=== PATIENT | male | born 1930 | race Caucasian/White ===

== ENCOUNTER 2016-11-26 10:53 | Observation (INO) | payer MEDICARE ==
[2016-11-26] VITALS (8 sets, daily range): BP systolic 121–175; BP diastolic 58–81; PULSE 62–85; RESP 14–18; TEMP 97.6–98.7; O2SAT 96–100
[~2016-11-26] VITALS: Ht 170.2 cm; Wt 60.0 kg
[~2016-11-26 10:53] MED LIST: ASPI81TA82 PO; ATOR20TA PO; ATRO0.05 LEFT EYE; CENTTAB9 PO; KETO1SOL3 LEFT EYE; KRIL300C PO; METO50TA PO; MISC1CAP7; OCUF0.3D LEFT EYE; OCUVCAP2; PRED1%O LEFT EYE
--- NOTE | 2016-11-26 12:49 | PD ---
HPI Chief Complaint: Abdominal Pain Time Seen by Provider: 12:49 Travel History International Travel<30 days: No Contact w/Intl Traveler<30days: No Traveled to known affect area: No History of Present Illness HPI 86-year-old male with history of hypertension, hyperlipidemia, CAD, CABG presents to the emergency department for evaluation of nausea and vomiting for 2 weeks. The patient states that for the past 2 weeks he has had multiple episodes of nonbloody nonbilious emesis. States that he saw his doctor in office yesterday and had lab work ordered and was prescribed Zofran and Protonix. States that he has not had any vomiting over the past 2 days and has been able to keep some fluids down, has been drinking Ensure. States he was called by his doctor's office today and told to come to the ED because his labs from yesterday had some abnormalities. He denies any fever, chills, abdominal pain, diarrhea, constipation, bloody stool, chest pain, shortness of breath. He does state he had a mild cold with nasal congestion last week which has resolved. Denies any prior abdominal surgeries. PCP is Dr. Lira. No other complaints. PFSH Past Medical History Cardiovascular Problems: Yes (CABG 20 YEARS AGO) Respiratory: No Past Surgical History Cardiac Surgery: Yes (CABG) Eye Surgery: Yes (CATARACT LEFT EYE) Joint Replacement: No Pacemaker: No Social History Alcohol Use: Yes (occasional 1 glass wine per week) Tobacco Use: No Allergies-Medications (Allergen,Severity, Reaction): Coded Allergies: No Known Allergies (Unverified , 11/26/16) Reported Meds & Prescriptions Reported Meds & Active Scripts Active Reported Zofran Odt (Ondansetron Odt) 4 Mg Tab 4 Mg SL Q6HR PRN Pantoprazole (Pantoprazole Sodium) 40 Mg Tab 40 Mg PO DAILY Urinozinc (Misc Natural Products) 1 Cap Cap Tolnaftate 1% Antifungal (Tolnaftate) 1 % Cre Maximum Red Kril (Krill Oil) 300 Mg Cap Centrum Adults (Multiple Vitamins W/ Minerals) 1 Tab 1 Tab PO DAILY Atorvastatin (Atorvastatin Calcium) 10 Mg Tab 10 Mg PO HS Aspirin Low Dose (Aspirin) 81 Mg Chew 81 Mg CHEW DAILY Review of Systems Except as stated in HPI: all other systems reviewed are Neg Physical Exam Narrative GENERAL: Well-nourished and well-developed pleasant male patient in no acute distress. SKIN: Warm and dry. HEAD: Normocephalic and atraumatic. EYES: No injection, drainage, or hyphema noted. PERRLA. EOMI. ENT: No nasal drainage noted. Oropharynx is clear. NECK: Supple and the trachea is midline. CARDIOVASCULAR: Regular rate and rhythm. RESPIRATORY: Breath sounds are equal bilaterally with no accessory muscle use, wheezing, rhonchi, or crackles. GASTROINTESTINAL: Abdomen is soft, non-tender, and nondistended. MUSCULOSKELETAL: No obvious deformities, swelling, cyanosis, or ecchymosis is present throughout the upper and lower extremities. Patient has full range of motion without any signs of neurovascular compromise. NEUROLOGICAL: Awake, alert, and oriented. Normal speech and gait. Cranial nerves are grossly intact. Data Data Last Documented VS Vital Signs Date Time Temp Pulse Resp B/P Pulse Ox O2 Delivery O2 Flow Rate FiO2 11/26/16 16:41 75 18 161/74 97 Room Air 11/26/16 10:55 98.7 Orders Complete Blood Count With Diff (11/26/16 12:47) Comprehensive Metabolic Panel (11/26/16 12:47) Lipase (11/26/16 12:47) Urinalysis - C+S If Indicated (11/26/16 12:47) Ct Abd/Pel W Iv Contrast(Rout) (11/26/16 12:47) Iv Access Insert/Monitor (11/26/16 12:47) Ecg Monitoring (11/26/16 12:47) Oximetry (11/26/16 12:47) Sodium Chloride 0.9% Flush (Ns Flush) (11/26/16 13:00) Electrocardiogram (11/26/16 12:47) Sodium Chlorid 0.9% 500 Ml Inj (Ns 500 M (11/26/16 13:00) Troponin I (11/26/16 12:49) Creatine Kinase (Cpk) (11/26/16 12:50) Prothrombin Time / Inr (Pt) (11/26/16 13:16) Act Partial Throm Time (Ptt) (11/26/16 13:16) Urine Culture (11/26/16 15:15) Iohexol 350 Inj (Omnipaque 350 Inj) (11/26/16 16:14) Sodium Chlor 0.9% 1000 Ml Inj (Ns 1000 M (11/26/16 17:41) Us Abdomen Gallbladder (11/26/16 ) Admit Order (Ed Use Only) (11/26/16 17:49) Labs Laboratory Tests Test 11/26/16 11/26/16 13:20 15:15 White Blood Count 7.7 TH/MM3 Red Blood Count 4.68 MIL/MM3 Hemoglobin 14.4 GM/DL Hematocrit 41.8 % Mean Corpuscular Volume 89.4 FL Mean Corpuscular Hemoglobin 30.8 PG Mean Corpuscular Hemoglobin 34.5 % Concent Red Cell Distribution Width 14.3 % Platelet Count 246 TH/MM3 Mean Platelet Volume 7.4 FL Neutrophils (%) (Auto) 69.3 % Lymphocytes (%) (Auto) 19.8 % Monocytes (%) (Auto) 8.4 % Eosinophils (%) (Auto) 2.0 % Basophils (%) (Auto) 0.5 % Neutrophils # (Auto) 5.3 TH/MM3 Lymphocytes # (Auto) 1.5 TH/MM3 Monocytes # (Auto) 0.6 TH/MM3 Eosinophils # (Auto) 0.2 TH/MM3 Basophils # (Auto) 0.0 TH/MM3 CBC Comment DIFF FINAL Differential Comment Prothrombin Time 11.3 SEC Prothromb Time International 1.0 RATIO Ratio Activated Partial 30.7 SEC Thromboplast Time Sodium Level 136 MEQ/L Potassium Level 3.7 MEQ/L Chloride Level 102 MEQ/L Carbon Dioxide Level 23.0 MEQ/L Anion Gap 11 MEQ/L Blood Urea Nitrogen 20 MG/DL Creatinine 1.04 MG/DL Estimat Glomerular Filtration 68 ML/MIN Rate Random Glucose 133 MG/DL Calcium Level 9.1 MG/DL Total Bilirubin 3.3 MG/DL Aspartate Amino Transf 82 U/L (AST/SGOT) Alanine Aminotransferase 140 U/L (ALT/SGPT) Alkaline Phosphatase 281 U/L Total Creatine Kinase 58 U/L Troponin I LESS THAN 0.02 NG/ML Total Protein 8.2 GM/DL Albumin 3.0 GM/DL Lipase 5297 U/L Urine Color DARK-YELLOW Urine Turbidity HAZY Urine pH 6.0 Urine Specific [place] 1.026 Urine Protein 30 mg/dL Urine Glucose (UA) 70 mg/dL Urine Ketones NEG mg/dL Urine Occult Blood NEG Urine Nitrite NEG Urine Bilirubin NEG Urine Urobilinogen GREATER THAN 12.0 MG/DL Urine Leukocyte Esterase SMALL Urine RBC 2 /hpf Urine WBC 19 /hpf Urine Squamous Epithelial 1 /hpf Cells Urine Bacteria RARE /hpf Urine Mucus FEW /lpf Microscopic Urinalysis Comment CULTURE INDICATED MDM Medical Decision Making Medical Screen Exam Complete: Yes Emergency Medical Condition: Yes Differential Diagnosis Pancreatitis versus diverticulitis versus colitis versus SBO versus dehydration versus UTI Narrative Course 86-year-old male presents to the emergency department for evaluation of nausea and vomiting for 2 weeks. Patient is afebrile, vital signs are stable. IV access is obtained, labs have been drawn and sent. CT of the abdomen and pelvis with IV contrast has been ordered and is pending. CBC is unremarkable. CMP shows elevated LFTs with bilirubin 3.3, AST 82, ALT 140, alkaline phosphatase 281. Lipase is elevated at 5297. Troponin is 0.02. Urinalysis shows 30 protein, 70 glucose, greater than 12 urobilinogen, small leukocyte esterase, 19 white blood cells, rare bacteria and few mucus. CT of the abdomen and pelvis with IV contrast shows incidental finding of small mildly heterogeneous mass in subcutaneous fat along lower left abdominal wall representing a possible hematoma or seroma. Otherwise negative for any acute abnormalities. Ultrasound of the gallbladder is negative. Patient will be admitted to medicine service for acute pancreatitis. I discussed the case with my attending physician Dr. Lemus who is aware of the patients history, physical examination findings, and treatment plan. Physician Communication Physician Communication I spoke with Dr. Cherry [facility] who agrees to admit the patient to Dr. Nunn 's service. Diagnosis Primary Impression: Acute pancreatitis Qualified Code: K85.90 - Acute pancreatitis without infection or necrosis, unspecified pancreatitis type Admitting Information Admitting Physician Requests: Admit Renetta Begum Nov 26, 2016 12:49
[2016-11-26] MEDS ORDERED: SODIUM CHLORIDE 0.9% FLUSH 5 ML FLUSH IVF PRN (13:00)
[2016-11-26] MEDS ORDERED: SODIUM CHLORID 0.9% 500 ML INJ 500 ML IV ONE (13:00)
[2016-11-26 13:44] LABS: AUTOMATED NEUTROPHIL # 5.3 TH/MM3 (1.8-7.7); BASOPHIL % 0.5 % (0.0-2.0); EOSINOPHIL # 0.2 TH/MM3 (0-0.4); HEMATOCRIT 41.8 % (39.0-51.0); HEMO FLAGS DIFF FINAL; LYMPH % 19.8 % (9.0-44.0); LYMPHOCYTE # 1.5 TH/MM3 (1.0-4.8); MEAN CELL VOLUME 89.4 FL (80.0-100.0); MEAN CORPUSCULAR HEMOGLOBIN 30.8 PG (27.0-34.0); MEAN CORPUSCULAR HGB CONC 34.5 % (32.0-36.0); MONO % 8.4 % (0.0-8.0); NEUT % 69.3 % (16.0-70.0); PLATELET COUNT 246 TH/MM3 (150-450); RED BLOOD COUNT 4.68 MIL/MM3 (4.50-5.90); RED CELL DISTRIBUTION WIDTH 14.3 % (11.6-17.2); WHITE BLOOD COUNT 7.7 TH/MM3 (4.0-11.0)
[2016-11-26 13:56] LABS: APTT (PATIENT) 30.7 SEC (24.3-30.1); PROTHROMBIN TIME - PATIENT 11.3 SEC (9.8-11.6)
[2016-11-26 15:20] LABS: ALT (GPT) 140 U/L (12-78); ANION GAP 11 MEQ/L (5-15); AST (GOT) 82 U/L (15-37); BLOOD UREA NITROGEN 20 MG/DL (7-18); CHLORIDE 102 MEQ/L (98-107); GLOMERULAR FILTRATION RATE 68 ML/MIN (>89); POTASSIUM 3.7 MEQ/L (3.5-5.1); SODIUM (NA) 136 MEQ/L (136-145)
[2016-11-26 15:22] LABS: ALKALINE PHOSPHATASE 281 U/L (45-117); TOTAL BILIRUBIN ADULT 3.3 MG/DL (0.2-1.0)
[2016-11-26 15:43] LABS: BACTERIA, URINE RARE /hpf; BLOOD, URINE NEG (NEG); COMMENT (UR) CULTURE INDICATED; CULTURE IF INDICATED CULTURE INDICATED; GLUCOSE,URINE 70 mg/dL (NEG); KETONE, URINE NEG (NEG); MUCUS URINE FEW /lpf (OCC); NITRITE,URINE NEG (NEG); SQUAMOUS EPITHELIAL CELL URINE 1 /hpf (0-5); URINE COLOR DARK-YELLOW (YELLW/STRAW)
[2016-11-26] MEDS ORDERED: IOHEXOL 350 MG/ML 10 ML VIAL (for RAD DIAG) IV ONE (16:14)
--- NOTE | 2016-11-26 16:33 | RADRPT ---
EXAM DATE/TIME: 11/26/2016 15:55 [facility] COMPARISON: No previous studies available for comparison. INDICATIONS : Vomiting for two weeks with hematemesis, abnormal liver and pancreatic labs. IV CONTRAST: 71 cc Omnipaque 350 (iohexol) IV ORAL CONTRAST: No oral contrast ingested. RADIATION DOSE: 5.24 CTDIvol (mGy) MEDICAL HISTORY : Cardiovascular disease. Hypertension. SURGICAL HISTORY : CABG ENCOUNTER: Initial ACUITY: 2 weeks PAIN SCALE: 3/10 LOCATION: diffuse abdomen TECHNIQUE: Volumetric scanning of the abdomen and pelvis was performed. Using automated exposure control and ad justment of the mA and/or kV according to patient size, radiation dose was kept as low as reasonably achievable to obtain optimal diagnostic quality images. FINDINGS: LOWER LUNGS: The visualized lower lungs are clear. LIVER: Homogeneous density without lesion. There is no dilation of the biliary tree. No calcified gallston es. There is fatty infiltration of the liver. SPLEEN: Normal size without lesion. PANCREAS: Within normal limits. KIDNEYS: Normal in size and shape. There is no mass, stone or hydronephrosis. ADRENAL GLANDS: Within normal limits. VASCULAR: There is no aortic aneurysm. BOWEL/MESENTERY: The stomach, small bowel, and colon demonstrate no acute abnormality. There is no free intraperitone al air or fluid. ABDOMINAL WALL: Intact. There is a 1.5 x 2.3 cm oval mildly heterogeneous low attenuation mass along the left lower a nterior abdominal wall musculature. This measures approximately 12 Hounsfield units in density. RETROPERITONEUM: There is no lymphadenopathy. BLADDER: No wall thickening or mass. REPRODUCTIVE: Within normal limits. INGUINAL: There is no lymphadenopathy or hernia. MUSCULOSKELETAL: Within normal limits for patient age. CONCLUSION: 1. Unremarkable bowel gas pattern. No oral contrast was given limiting the sensitivity. 2. Unremarkable gallbladder. 3. Small mildly heterogeneous, low-attenuation mass in the subcutaneous fat along the lower left ante rior abdominal wall musculature. This is nonspecific but could represent a small hematoma and/or sero ma. Krish Medellin MD on November 26, 2016 at 16:27 Board Certified Radiologist. This report was verified electronically.
[2016-11-26] MEDS ORDERED: ATOR10TA15 PO (16:44)
[2016-11-26] MEDS ORDERED: PANT40TA3 PO (16:44)
[2016-11-26] MEDS ORDERED: ASPI81CH37 CHEW (16:44)
[2016-11-26] MEDS ORDERED: CENTTAB8 PO (16:44)
[2016-11-26] MEDS ORDERED: ZOFR4TAB3 SL (16:44)
[2016-11-26] MEDS ORDERED: TOLN1CRE (16:44)
[2016-11-26] MEDS ORDERED: MISC1CAP7 (16:44)
[2016-11-26] MEDS ORDERED: KRIL1CAP5 (16:44)
[2016-11-26] MEDS ORDERED: SODIUM CHLOR 0.9% 1000 ML INJ 1,000 ML IV SCH ×2 (17:41→21:00)
--- NOTE | 2016-11-26 18:52 | RADRPT ---
EXAM DATE/TIME: 11/26/2016 18:15 [facility] COMPARISON: No previous studies available for comparison. INDICATIONS : Right upper quadrant pain. MEDICAL HISTORY : Hypertension. Hypercholesterolemia. SURGICAL HISTORY : CABG. Quadruple bypass. ENCOUNTER: Initial ACUITY: 3 weeks PAIN SCORE: 7/10 LOCATION: Right upper quadrant MEASUREMENTS: LIVER: 15.9 cm length COMMON DUCT: 4 mm RIGHT KIDNEY: 9.7 x 5.0 x 4.6 cm FINDINGS: LIVER: Normal echotexture without focal lesion or ductal dilatation. COMMON DUCT: No intraluminal mass or stone visualized. GALLBLADDER: Contains no stones, demonstrates no wall thickening or pericholecystic fluid. PANCREAS: The visualized portions are within normal limits. RIGHT KIDNEY: No evidence of hydronephrosis, stone, or mass. CONCLUSION: Normal examination for a patient of this age. Leo Beard MD on November 26, 2016 at 18:46 Board Certified Radiologist. This report was verified electronically.
--- NOTE | 2016-11-26 20:44 | HHI.HP ---
HPI Service [facility] Hospitalists Primary Care Physician Re Lira MD Admission Diagnosis Acute Pancreatitis, Elevated LFTs Chief Complaint: n/v, abd pain, sent by PCP for abnormal labs Travel History International Travel<30 Days: No Contact w/Intl Traveler <30 Da: No Traveled to Known Affected Are: No History of Present Illness 86-year-old male with history of hypertension, hyperlipidemia, CAD, distant hx of CABG presents to the emergency department for evaluation of nausea and vomiting intermittently for 2 weeks. The patient states that for the past 2 weeks he has had multiple episodes of nonbloody nonbilious emesis. States that he saw his doctor in office yesterday and had lab work ordered and was prescribed Zofran and Protonix. States that he has not had any vomiting over the past 2 days and has been able to keep some fluids down, has been drinking Ensure and ate Jello this AM. Actually feeling better last 2 days. No fever or foreign travel. States he was called by his doctor's office today and told to come to the ED because his labs from yesterday had some abnormalities. He denies any chills, current abdominal pain, diarrhea, constipation, bloody stool , chest pain, shortness of breath. He does state he had a mild cold with nasal congestion last week which has resolved. Denies any prior abdominal surgeries or previous problems with pancreas/GB. Denies new meds other than the zofran and Protonix. Review of Systems Constitutional: COMPLAINS OF: Fatigue, Weight loss, Change in appetite Endocrine: DENIES: Heat/cold intolerance, Polydipsia, Polyuria, Polyphagia Eyes: DENIES: Blurred vision, Diplopia, Eye inflammation, Eye pain, Vision loss , Photosensitivity, Double Vision Ears, nose, mouth, throat: DENIES: Tinnitus, Hearing loss, Vertigo, Nasal discharge, Oral lesions, Throat pain, Hoarseness, Ear Pain, Running Nose, Epistaxis, Sinus Pain, Toothache, Odynophagia Respiratory: DENIES: Apneas, Cough, Snoring, Wheezing, Hemoptysis, Sputum production, Shortness of breath Cardiovascular: DENIES: Chest pain, Palpitations, Syncope, Dyspnea on Exertion , PND, Lower Extremity Edema, Orthopnea, Claudication Gastrointestinal: COMPLAINS OF: Abdominal pain, Nausea, Vomiting, Anorexia, DENIES: Black stools, Bloody stools, BRB per rectum, Constipation, Diarrhea, GERD, Reflux, Difficulty Swallowing, See HPI Musculoskeletal: COMPLAINS OF: Joint pain Integumentary: DENIES: Abnormal pigmentation, Nail changes, Pruritus, Rash Hematologic/lymphatic: DENIES: Bruising, Lymphadenopathy Immunologic/allergic: DENIES: Eczema, Urticaria Neurologic: DENIES: Abnormal gait, Headache, Localized weakness, Paresthesias, Seizures, Speech Problems, Tremor, Poor Balance Psychiatric: DENIES: Anxiety, Confusion, Mood changes, Depression, Hallucinations, Agitation, Suicidal Ideation, Homicidal Ideation, Delusions, History of Bipolar, History of Schizophrenia Past Family Social History Past Medical History CAD HTN Hyperlipidemia Past Surgical History CABG x 4 vessels, 1995 in [place], [place] Cataract surgery T&A Reported Medications Zofran Odt (Ondansetron Odt) 4 Mg Tab 4 Mg SL Q6HR PRN Pantoprazole (Pantoprazole Sodium) 40 Mg Tab 40 Mg PO DAILY Urinozinc (Misc Natural Products) 1 Cap Cap Tolnaftate 1% Antifungal (Tolnaftate) 1 % Cre Maximum Red Kril (Krill Oil) 300 Mg Cap Centrum Adults (Multiple Vitamins W/ Minerals) 1 Tab 1 Tab PO DAILY Atorvastatin (Atorvastatin Calcium) 10 Mg Tab 10 Mg PO HS Aspirin Low Dose (Aspirin) 81 Mg Chew 81 Mg CHEW DAILY Allergies: Coded Allergies: No Known Allergies (Unverified , 11/26/16) Family History n/c Social History No tobacco Occasional Etoh, 1 drink per week Lives with of 65 yrs. 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 Has been in OR many years and local for last 2 yrs. Walks daily for exercise with no CP Physical Exam Vital Signs Vital Signs Date Time Temp Pulse Resp B/P Pulse Ox O2 Delivery O2 Flow Rate FiO2 11/26/16 20:12 78 18 152/73 98 Room Air 11/26/16 19:00 79 18 145/81 96 Room Air 11/26/16 16:41 75 18 161/74 97 Room Air 11/26/16 16:36 18 11/26/16 16:36 96 Room Air 11/26/16 10:55 98.7 85 14 175/79 96 Room Air Physical Exam GENERAL: This is a well-nourished, well-developed patient, in no apparent distress. a/o, pleasant. SKIN: No rashes, ecchymoses or lesions. slight xerosis. HEAD: Atraumatic. Normocephalic. No temporal or scalp tenderness. EYES: Pupils equal round and reactive. Extraocular motions intact. No scleral icterus. No injection or drainage. ENT: Nose without bleeding, purulent drainage or septal hematoma. Airway patent. NECK: Trachea midline. No JVD or lymphadenopathy. Supple, nontender, no meningeal signs. CARDIOVASCULAR: Regular rate and rhythm without murmurs, gallops, or rubs. RESPIRATORY: Clear to auscultation. Breath sounds equal bilaterally. No wheezes , rales, or rhonchi. GASTROINTESTINAL: Abdomen soft, non-tender, nondistended. No hepato-splenomegaly , or palpable masses. No guarding or rebound. BS wnl. MUSCULOSKELETAL: Extremities without clubbing, cyanosis, or edema. No joint tenderness, effusion, or edema noted. No calf tenderness. NEUROLOGICAL: Awake and alert. Cranial nerves II through XII intact. Motor and sensory grossly within normal limits. Five out of 5 muscle strength in all muscle groups. Normal speech. Laboratory Laboratory Tests Test 11/26/16 11/26/16 13:20 15:15 White Blood Count 7.7 Red Blood Count 4.68 Hemoglobin 14.4 Hematocrit 41.8 Mean Corpuscular Volume 89.4 Mean Corpuscular Hemoglobin 30.8 Mean Corpuscular Hemoglobin 34.5 Concent Red Cell Distribution Width 14.3 Platelet Count 246 Mean Platelet Volume 7.4 Neutrophils (%) (Auto) 69.3 Lymphocytes (%) (Auto) 19.8 Monocytes (%) (Auto) 8.4 Eosinophils (%) (Auto) 2.0 Basophils (%) (Auto) 0.5 Neutrophils # (Auto) 5.3 Lymphocytes # (Auto) 1.5 Monocytes # (Auto) 0.6 Eosinophils # (Auto) 0.2 Basophils # (Auto) 0.0 CBC Comment DIFF FINAL Differential Comment Prothrombin Time 11.3 Prothromb Time International 1.0 Ratio Activated Partial 30.7 Thromboplast Time Sodium Level 136 Potassium Level 3.7 Chloride Level 102 Carbon Dioxide Level 23.0 Anion Gap 11 Blood Urea Nitrogen 20 Creatinine 1.04 Estimat Glomerular Filtration 68 Rate Random Glucose 133 Calcium Level 9.1 Total Bilirubin 3.3 Aspartate Amino Transf 82 (AST/SGOT) Alanine Aminotransferase 140 (ALT/SGPT) Alkaline Phosphatase 281 Total Creatine Kinase 58 Troponin I LESS THAN 0.02 Total Protein 8.2 Albumin 3.0 Lipase 5297 Urine Color DARK-YELLOW Urine Turbidity HAZY Urine pH 6.0 Urine Specific [place] 1.026 Urine Protein 30 Urine Glucose (UA) 70 Urine Ketones NEG Urine Occult Blood NEG Urine Nitrite NEG Urine Bilirubin NEG Urine Urobilinogen GREATER THAN 12.0 Urine Leukocyte Esterase SMALL Urine RBC 2 Urine WBC 19 Urine Squamous Epithelial 1 Cells Urine Bacteria RARE Urine Mucus FEW Microscopic Urinalysis Comment CULTURE INDICATED Date/Time Procedure Status Source Growth 11/26/16 15:15 Urine Culture Received Urine Clean Catch Pending Result Diagram: 11/26/16 1320 11/26/16 1320 Imaging Last 72 hours Impressions Abdomen/Pelvis CT 11/26/16 1247 Signed Impressions: Service Date/Time: Saturday, November 26, 2016 15:55 - CONCLUSION: 1. Unremarkable bowel gas pattern. No oral contrast was given limiting the sensitivity. 2. Unremarkable gallbladder. 3. Small mildly heterogeneous, low-attenuation mass in the subcutaneous fat along the lower left anterior abdominal wall musculature. This is nonspecific but could represent a small hematoma and/or seroma. Krish Medellin MD Gall Bladder Ultrasound 11/26/16 0000 Signed Impressions: Service Date/Time: Saturday, November 26, 2016 18:15 - CONCLUSION: Normal examination for a patient of this age. Leo Beard MD Assessment and Plan Problem List: (1) Nausea & vomiting Status: Acute Plan: continue zofran, gentle IVF. Possible underlying pancreatitis, but clinical findings and CT not supportive of fulminant disease. Will follow clinically. (2) Acute pancreatitis Status: Acute Plan: as noted above. Lipase was appx 3900 yesterday, now above 5000, but pt clinically appears in no significant distress and CT/U/S OK. Will see how he tolerates diet. May need GI eval. (3) Hyperlipidemia Status: Chronic Plan: hold meds due to transaminase elevation. (4) Hypertension Status: Chronic Plan: cont rx. Code Status full Discussed Condition With patient Problem Qualifiers (1) Acute pancreatitis: Qualified Code: K85.90 - Acute pancreatitis without infection or necrosis, unspecified pancreatitis type Papito Cherry PhD MD Nov 26, 2016 20:44
[2016-11-26] MEDS ORDERED: ONDANSETRON HCL 4 MG/2 ML VIAL IV PUSH PRN (20:45)
[2016-11-26] MEDS: METOPROLOL TARTRATE 25 MG TAB PO SCH (21:49)
[2016-11-27 07:25] LABS: ALKALINE PHOSPHATASE 211 U/L (45-117); ALT (GPT) 88 U/L (12-78); ANION GAP 10 MEQ/L (5-15); AST (GOT) 44 U/L (15-37); BICARBONATE 22.1 MEQ/L (21.0-32.0); BLOOD UREA NITROGEN 14 MG/DL (7-18); CHLORIDE 107 MEQ/L (98-107); GLOMERULAR FILTRATION RATE 85 ML/MIN (>89); HDL CHOLESTEROL 29.8 MG/DL (40.0-60.0); LDL CHOLESTEROL 39 MG/DL (0-99); POTASSIUM 3.7 MEQ/L (3.5-5.1); SODIUM (NA) 139 MEQ/L (136-145); TOTAL BILIRUBIN ADULT 2.8 MG/DL (0.2-1.0)
[2016-11-27 08:32] VITALS: BP 146/69; PULSE 70; TEMP 97.8; O2SAT 97
[2016-11-27] MEDS: METOPROLOL TARTRATE 25 MG TAB PO SCH ×2 (09:19→21:36)
[2016-11-27] MEDS: ASPIRIN 81 MG CHEW TAB CHEW SCH (09:19)
[2016-11-27] MEDS: PANTOPRAZOLE SOD 40 MG DELAYED RELEASE TAB PO SCH (09:20)
--- NOTE | 2016-11-27 11:56 | HHI.PR ---
Subjective Remarks Pt reports that he is not having any pain today He tolerated clear liquids for breakfast. Pt has been afebrile. He denies any new medications, recent illnesses prior to the onset of his N/V and denies any regular alcohol use (drinks one glass of Merlot on Friday nights at [facility] but none for the last few weeks) Objective Vitals Vital Signs Date Time Temp Pulse Resp B/P Pulse Ox O2 Delivery O2 Flow Rate FiO2 11/27/16 08:32 97.8 70 146/69 97 11/26/16 23:30 97.6 62 16 134/79 97 11/26/16 23:18 71 18 123/58 96 11/26/16 20:12 78 18 152/73 98 Room Air 11/26/16 19:00 79 18 145/81 96 Room Air 11/26/16 16:41 75 18 161/74 97 Room Air 11/26/16 16:36 18 11/26/16 16:36 96 Room Air Result Diagram: 11/26/16 1320 11/27/16 0632 Other Results Laboratory Tests Test 11/26/16 11/26/16 11/27/16 13:20 15:15 06:32 White Blood Count 7.7 TH/MM3 Red Blood Count 4.68 MIL/MM3 Hemoglobin 14.4 GM/DL Hematocrit 41.8 % Mean Corpuscular Volume 89.4 FL Mean Corpuscular Hemoglobin 30.8 PG Mean Corpuscular Hemoglobin 34.5 % Concent Red Cell Distribution Width 14.3 % Platelet Count 246 TH/MM3 Mean Platelet Volume 7.4 FL Neutrophils (%) (Auto) 69.3 % Lymphocytes (%) (Auto) 19.8 % Monocytes (%) (Auto) 8.4 % Eosinophils (%) (Auto) 2.0 % Basophils (%) (Auto) 0.5 % Neutrophils # (Auto) 5.3 TH/MM3 Lymphocytes # (Auto) 1.5 TH/MM3 Monocytes # (Auto) 0.6 TH/MM3 Eosinophils # (Auto) 0.2 TH/MM3 Basophils # (Auto) 0.0 TH/MM3 CBC Comment DIFF FINAL Differential Comment Prothrombin Time 11.3 SEC Prothromb Time International 1.0 RATIO Ratio Activated Partial 30.7 SEC Thromboplast Time Sodium Level 136 MEQ/L 139 MEQ/L Potassium Level 3.7 MEQ/L 3.7 MEQ/L Chloride Level 102 MEQ/L 107 MEQ/L Carbon Dioxide Level 23.0 MEQ/L 22.1 MEQ/L Anion Gap 11 MEQ/L 10 MEQ/L Blood Urea Nitrogen 20 MG/DL 14 MG/DL Creatinine 1.04 MG/DL 0.86 MG/DL Estimat Glomerular Filtration 68 ML/MIN 85 ML/MIN Rate Random Glucose 133 MG/DL 98 MG/DL Calcium Level 9.1 MG/DL 8.1 MG/DL Total Bilirubin 3.3 MG/DL 2.8 MG/DL Aspartate Amino Transf 82 U/L 44 U/L (AST/SGOT) Alanine Aminotransferase 140 U/L 88 U/L (ALT/SGPT) Alkaline Phosphatase 281 U/L 211 U/L Total Creatine Kinase 58 U/L Troponin I LESS THAN 0.02 NG/ML Total Protein 8.2 GM/DL 6.6 GM/DL Albumin 3.0 GM/DL 2.5 GM/DL Lipase 5297 U/L 1466 U/L Urine Color DARK-YELLOW Urine Turbidity HAZY Urine pH 6.0 [address] [place] 1.026 Urine Protein 30 mg/dL Urine Glucose (UA) 70 mg/dL Urine Ketones NEG mg/dL Urine Occult Blood NEG Urine Nitrite NEG Urine Bilirubin NEG Urine Urobilinogen GREATER THAN 12.0 MG/DL Urine Leukocyte Esterase SMALL Urine RBC 2 /hpf Urine WBC 19 /hpf Urine Squamous Epithelial 1 /hpf Cells Urine Bacteria RARE /hpf Urine Mucus FEW /lpf Microscopic Urinalysis Comment CULTURE INDICATED Triglycerides Level 96 MG/DL Cholesterol Level 88 MG/DL LDL Cholesterol 39 MG/DL HDL Cholesterol 29.8 MG/DL Cholesterol/HDL Ratio 2.95 RATIO Imaging Last 72 hours Impressions Abdomen/Pelvis CT 11/26/16 1247 Signed Impressions: Service Date/Time: Saturday, November 26, 2016 15:55 - CONCLUSION: 1. Unremarkable bowel gas pattern. No oral contrast was given limiting the sensitivity. 2. Unremarkable gallbladder. 3. Small mildly heterogeneous, low-attenuation mass in the subcutaneous fat along the lower left anterior abdominal wall musculature. This is nonspecific but could represent a small hematoma and/or seroma. Krish Medellin MD Gall Bladder Ultrasound 11/26/16 0000 Signed Impressions: Service Date/Time: Saturday, November 26, 2016 18:15 - CONCLUSION: Normal examination for a patient of this age. Leo Beard MD Objective Remarks General: NAD, AAOx3 Chest: CTA bilaterally Cardiac: Regular Abd: +BS, soft ND/NT Ext: No edema A/P Problem List: (1) Nausea & vomiting Status: Acute Plan: - Pt admitted with nausea/vomiting and abd pain x 2 weeks. - Outpt labs revealed elevated Lipase was appx 3900 and was sent to the ER. - Labs at admission noted an elevated Lipase of 5297 and elevated LFTs with Tbili 3.3, AST 82 ALT 140, AlkPhos 281 - CT Abd/pelvis --> Unremarkable bowel gas pattern. No oral contrast was given limiting the sensitivity. Unremarkable gallbladder. Small mildly heterogeneous, low- attenuation mass in the subcutaneous fat along the lower left anterior abdominal wall musculature. This is nonspecific but could represent a small hematoma and/or seroma. - Gallbladder US was negative for stones. - Pt denies any recent medication changes, alcohol use or recent illnesses. - Pancreatitis may have been secondary to a passed gallstone - Labs are improving today to Lipase 1466, Tbili 2.8, AST 44, ALT 88, AlkPhos 211 - Pt tolerating clear liquids - Advance later today to full liquids as tolerated - Continue Zofran, gentle IVF. (2) Acute pancreatitis Status: Acute Plan: - as noted above. (3) Hyperlipidemia Status: Chronic Plan: - Hold meds due to transaminase elevation. (4) Hypertension Status: Chronic Plan: - Cont rx. Assessment and Plan Patient examined. Assessment and plan formulated with Desi Griffin PA-C. I agree with the above. acute pancreatitis probably passed gallstone. improving labs and sxs. advance diet tonight and d/c in am. Problem Qualifiers (1) Acute pancreatitis: Qualified Code: K85.90 - Acute pancreatitis without infection or necrosis, unspecified pancreatitis type Desi Griffin Nov 27, 2016 11:56 Jamil Nunn MD Nov 27, 2016 14:46
[2016-11-27 12:31] VITALS: BP 119/68; PULSE 71; RESP 19; TEMP 97.7; O2SAT 95
[2016-11-27 17:04] VITALS: BP 121/68; PULSE 64; RESP 19; TEMP 98; O2SAT 98
--- NOTE | 2016-11-27 22:54 | EKG ---
Date Performed: 11/26/2016 Time Performed: 13:41:21 PTAGE: 86 years EKG: Sinus rhythm MODERATE INTRAVENTRICULAR CONDUCTION DELAY NONSPECIFIC T-WAVE ABNORMALITY ABNORMAL ECG NO PREVIOUS TRACING DOCTOR: Will Gomez Interpretating Date/Time 11/27/2016 22:52:56
[2016-11-28 00:24] VITALS: BP 132/78; PULSE 87; RESP 18; TEMP 98.8; O2SAT 98
[2016-11-28 05:31] VITALS: BP 163/87; PULSE 78; RESP 20; TEMP 98.7; O2SAT 99
[2016-11-28 08:00] VITALS: BP 134/73; PULSE 64; RESP 20; TEMP 97.1; O2SAT 97
[2016-11-28 08:04] LABS: ANION GAP 7 MEQ/L (5-15); AST (GOT) 37 U/L (15-37); BICARBONATE 25.3 MEQ/L (21.0-32.0); BLOOD UREA NITROGEN 10 MG/DL (7-18); CHLORIDE 108 MEQ/L (98-107); GLOMERULAR FILTRATION RATE 81 ML/MIN (>89); POTASSIUM 3.7 MEQ/L (3.5-5.1); SODIUM (NA) 140 MEQ/L (136-145)
[2016-11-28 08:09] LABS: ALKALINE PHOSPHATASE 180 U/L (45-117); ALT (GPT) 77 U/L (12-78); TOTAL BILIRUBIN ADULT 1.8 MG/DL (0.2-1.0)
[2016-11-28] MEDS: METOPROLOL TARTRATE 25 MG TAB PO SCH (09:17)
[2016-11-28] MEDS: PANTOPRAZOLE SOD 40 MG DELAYED RELEASE TAB PO SCH (09:17)
[2016-11-28] MEDS: ASPIRIN 81 MG CHEW TAB CHEW SCH (09:17)
[2016-11-28] MEDS ORDERED: METO25TA3 PO (09:40)
--- NOTE | 2016-11-28 09:42 | HHI.DCPOC ---
Discharge Care Plan Diagnosis: (1) Hyperlipidemia (2) Hypertension (3) Nausea & vomiting (4) Acute pancreatitis Goals to Promote Your Health * To prevent worsening of your condition and complications * To maintain your health at the optimal level Directions to Meet Your Goals Take your medications as prescribed Follow your dietary instruction Follow activity as directed Keep your appointments as scheduled Take your immunizations and boosters as scheduled If your symptoms worsen call your PCP, if no PCP go to Urgent Care Center or Emergency Room Smoking is Dangerous to Your Health. Avoid second hand smoke Call the 24-hour hour crisis hotline for domestic abuse at Desi Griffin Nov 28, 2016 09:42
--- NOTE | 2016-11-28 09:46 | HHI.PR ---
Subjective Remarks Pt reports that he is feeling well today He tolerated soft foods last night and this morning. He had a normal BM this morning. Pt is anxious to go home Objective Vitals Vital Signs Date Time Temp Pulse Resp B/P Pulse Ox O2 Delivery O2 Flow Rate FiO2 11/28/16 08:00 97.1 64 20 134/73 97 11/28/16 05:31 98.7 78 20 163/87 99 11/28/16 00:24 98.8 87 18 132/78 98 11/27/16 17:04 98.0 64 19 121/68 98 11/27/16 12:31 97.7 71 19 119/68 95 11/27/16 11/27/16 11/28/16 15:00 23:00 07:00 Intake Total 800 ml Balance 800 ml Intake IV Total 800 ml Result Diagram: 11/26/16 1320 11/28/16 0724 Other Results Laboratory Tests Test 11/26/16 11/26/16 11/27/16 11/28/16 13:20 15:15 06:32 07:24 Prothrombin Time 11.3 SEC Prothromb Time International 1.0 RATIO Ratio Activated Partial 30.7 SEC Thromboplast Time Sodium Level 136 MEQ/L 139 MEQ/L 140 MEQ/L Potassium Level 3.7 MEQ/L 3.7 MEQ/L 3.7 MEQ/L Chloride Level 102 MEQ/L 107 MEQ/L 108 MEQ/L Carbon Dioxide Level 23.0 MEQ/L 22.1 MEQ/L 25.3 MEQ/L Anion Gap 11 MEQ/L 10 MEQ/L 7 MEQ/L Blood Urea Nitrogen 20 MG/DL 14 MG/DL 10 MG/DL Creatinine 1.04 MG/DL 0.86 MG/DL 0.89 MG/DL Estimat Glomerular Filtration 68 ML/MIN 85 ML/MIN 81 ML/MIN Rate Random Glucose 133 MG/DL 98 MG/DL 118 MG/DL Calcium Level 9.1 MG/DL 8.1 MG/DL 8.7 MG/DL Total Bilirubin 3.3 MG/DL 2.8 MG/DL 1.8 MG/DL Aspartate Amino Transf 82 U/L 44 U/L 37 U/L (AST/SGOT) Alanine Aminotransferase 140 U/L 88 U/L 77 U/L (ALT/SGPT) Alkaline Phosphatase 281 U/L 211 U/L 180 U/L Total Creatine Kinase 58 U/L Troponin I LESS THAN 0.02 NG/ML Total Protein 8.2 GM/DL 6.6 GM/DL 6.7 GM/DL Albumin 3.0 GM/DL 2.5 GM/DL 2.5 GM/DL Lipase 5297 U/L 1466 U/L 1086 U/L White Blood Count 7.7 TH/MM3 Red Blood Count 4.68 MIL/MM3 Hemoglobin 14.4 GM/DL Hematocrit 41.8 % Mean Corpuscular Volume 89.4 FL Mean Corpuscular Hemoglobin 30.8 PG Mean Corpuscular Hemoglobin 34.5 % Concent Red Cell Distribution Width 14.3 % Platelet Count 246 TH/MM3 Mean Platelet Volume 7.4 FL Neutrophils (%) (Auto) 69.3 % Lymphocytes (%) (Auto) 19.8 % Monocytes (%) (Auto) 8.4 % Eosinophils (%) (Auto) 2.0 % Basophils (%) (Auto) 0.5 % Neutrophils # (Auto) 5.3 TH/MM3 Lymphocytes # (Auto) 1.5 TH/MM3 Monocytes # (Auto) 0.6 TH/MM3 Eosinophils # (Auto) 0.2 TH/MM3 Basophils # (Auto) 0.0 TH/MM3 CBC Comment DIFF FINAL Differential Comment Urine Color DARK-YELLOW Urine Turbidity HAZY Urine pH 6.0 Urine Specific [place] 1.026 Urine Protein 30 mg/dL Urine Glucose (UA) 70 mg/dL Urine Ketones NEG mg/dL Urine Occult Blood NEG Urine Nitrite NEG Urine Bilirubin NEG Urine Urobilinogen GREATER THAN 12.0 MG/DL Urine Leukocyte Esterase SMALL Urine RBC 2 /hpf Urine WBC 19 /hpf Urine Squamous Epithelial 1 /hpf Cells Urine Bacteria RARE /hpf Urine Mucus FEW /lpf Microscopic Urinalysis Comment CULTURE INDICATED Triglycerides Level 96 MG/DL Cholesterol Level 88 MG/DL LDL Cholesterol 39 MG/DL HDL Cholesterol 29.8 MG/DL Cholesterol/HDL Ratio 2.95 RATIO Imaging Last 72 hours Impressions Abdomen/Pelvis CT 11/26/16 1247 Signed Impressions: Service Date/Time: Saturday, November 26, 2016 15:55 - CONCLUSION: 1. Unremarkable bowel gas pattern. No oral contrast was given limiting the sensitivity. 2. Unremarkable gallbladder. 3. Small mildly heterogeneous, low-attenuation mass in the subcutaneous fat along the lower left anterior abdominal wall musculature. This is nonspecific but could represent a small hematoma and/or seroma. Krish Medellin MD Gall Bladder Ultrasound 11/26/16 0000 Signed Impressions: Service Date/Time: Saturday, November 26, 2016 18:15 - CONCLUSION: Normal examination for a patient of this age. Leo Beard MD Objective Remarks General: NAD, AAOx3 Chest: CTA bilaterally Cardiac: Regular Abd: +BS, soft ND/NT Ext: No edema A/P Problem List: (1) Acute pancreatitis Status: Acute Plan: - Pt admitted with nausea/vomiting and abd pain x 2 weeks. - Outpt labs revealed elevated Lipase was appx 3900 and was sent to the ER. - Labs at admission noted an elevated Lipase of 5297 and elevated LFTs with Tbili 3.3, AST 82 ALT 140, AlkPhos 281 - CT Abd/pelvis --> Unremarkable bowel gas pattern. No oral contrast was given limiting the sensitivity. Unremarkable gallbladder. Small mildly heterogeneous, low- attenuation mass in the subcutaneous fat along the lower left anterior abdominal wall musculature. This is nonspecific but could represent a small hematoma and/or seroma. - Gallbladder US was negative for stones. - Pt denies any recent medication changes, alcohol use or recent illnesses. - Pancreatitis may have been secondary to a passed gallstone - Labs are continued to improve, Lipase 1466 --> 1086. Tbili 2.8--> 1.8, AST 44 -->37, ALT 88 -->77, AlkPhos 211 -->180 - Pt tolerating soft foods - Plan for discharge to home today - He will need to followup with his PCP, Dr. Lira, in 1 week - Pt will need to schedule an appt with [facility] in 2 weeks - He will need a recheck of CMP and Lipase in 3-5 days, results to his PCP, Dr. Lira (2) Nausea & vomiting Status: Acute Plan: - See above. (3) Hyperlipidemia Status: Chronic Plan: - Hold meds due to transaminase elevation. (4) Hypertension Status: Chronic Plan: - Cont rx. Assessment and Plan Patient examined. Assessment and plan formulated with Desi Griffin PA-C. I agree with the above. acute pancreatitis felt most likely related to passed gallstone. labs and symptoms improved. f/u pcp and gi. Problem Qualifiers (1) Acute pancreatitis: Qualified Code: K85.90 - Acute pancreatitis without infection or necrosis, unspecified pancreatitis type Desi Griffin Nov 28, 2016 09:46 Jamil Nunn MD Nov 28, 2016 11:52
[2016-11-28 12:00] VITALS: BP 140/80; PULSE 69; RESP 20; TEMP 95.6; O2SAT 98
== END 2016-11-28 14:36 | disposition home or self-care (01) ==
LOC: NEPA 10:53 → NEDA 17:51 → NEDH 19:53 → NEPHCDU 23:30
PROVIDERS: ADMIT Hospitalist; ATTEND Hospitalist
DX: K85.90 Acute pancreatitis without necrosis or infection, unspecified (principal); K80.20 Calculus of gallbladder without cholecystitis without obstruction; I10 Essential (primary) hypertension; E78.5 Hyperlipidemia, unspecified; R82.79 Other abnormal findings on microbiological examination of urine; R94.31 Abnormal electrocardiogram [ECG] [EKG]; I25.10 Atherosclerotic heart disease of native coronary artery without angina pectoris; Z95.1 Presence of aortocoronary bypass graft
CPT/HCPCS: 74177; 76705; 80053; 80061; 81001; 82550; 83690; 84484; 85025; 85610; 85730; 87086; 93005; 96360; 99285; G0378; J7030; J7040; Q9967